=== PATIENT | female | born 1935 | race Caucasian/White ===

== ENCOUNTER → 2016-03-05 | Outpatient (CLI) | payer BC ==
[2016-03-05 14:48] LABS: EKG EKG PERFORMED
[2016-03-05 15:13] LABS: Basophils # (A) 0.1 k/uL (0-0.2); Basophils % (A) 1 %; CHCM 32.8; Eosinophils # (A) 0.1 k/uL (0-0.7); Eosinophils % (A) 1 %; HCT 35.8 % (34.0-46.0); HDW 2.69; HGB 11.4 gm/dL (11.4-16.0); Luc # (Auto) 0.13; Luc % (Auto) 2; Lymphocytes # (A) 2.8 k/uL (1.0-4.8); Lymphocytes % (A) 33 %; MCH 30.3 pg (25.0-35.0); MCV 94.9 fL (80.0-100.0); Mean Platelet Volume 8.2; Monocytes # (A) 0.4 k/uL (0-1.0); Monocytes % (A) 5 %; Neutrophils % (A) 58 %; RBC 3.77 m/uL (3.80-5.40); RDW 12.9 % (11.5-15.5); WBC 8.6 k/uL (3.8-10.6); WBC (Perox) 9.18
--- NOTE | 2016-03-05 15:27 | XR ---
EXAMINATION TYPE: XR chest 2V DATE OF EXAM: 03/05/2016 2:28 PM COMPARISON: NONE INDICATION: Presurgery: Evaluation for calcification TECHNIQUE: Frontal and lateral views of the chest are obtained. FINDINGS: The heart size is normal. The pulmonary vasculature is normal. The lungs are clear. IMPRESSION: 1. No acute pulmonary process.
[2016-03-05 15:29] LABS: ALT 32 U/L (9-52); AST 19 U/L (14-36); Alkaline Phosphatase 77 U/L (38-126); Anion Gap 10 mmol/L; Blood Urea Nitrogen 34 mg/dL (7-17); Carbon Dioxide 29 mmol/L (22-30); Chloride 102 mmol/L (98-107); Glucose 69 mg/dL (74-99); Non-African American GFR(MDRD) 53 (>60 ml/min/1.73 sqM); Potassium 5.1 mmol/L (3.5-5.1); Sodium 141 mmol/L (137-145); Total Bilirubin 0.3 mg/dL (0.2-1.3)
[2016-03-05 16:27] LABS: Amorphous Sediment,Urine Occasional /hpf; Appearance,Urine Cloudy (Clear); Bacteria,Urine Few /hpf; Bilirubin,Urine Negative (Negative); Glucose,Urine (UA) Negative (Negative); Ketones,Urine Negative (Negative); Leukocyte Esterase,Urine Large (Negative); Nitrite,Urine Negative (Negative); PH, Urine 5.5 (5.0-8.0); Particle Count 14958; Protein,Urine Trace (Negative); RBC,Urine 12 /hpf (0-5); Specific Gravity,Urine 1.019 (1.001-1.035); Squamous Epithelial Cell,Urine 4 /hpf (0-4); UA Billing (MACRO vs. MICRO) MICRO; Urobilinogen,Urine <2.0 mg/dL (<2.0); WBC,Urine >182 /hpf (0-5)
== END | disposition home or self-care (01) ==
LOC: RADXRMAIN 13:53
PROVIDERS: ATTEND Urology
DX: Z01.810 Encounter for preprocedural cardiovascular examination (principal); Z01.812 Encounter for preprocedural laboratory examination; I10 Essential (primary) hypertension; R06.02 Shortness of breath; N20.0 Calculus of kidney; R35.0 Frequency of micturition; Z79.899 Other long term (current) drug therapy
CPT/HCPCS: 36415; 71020; 80053; 81001; 85025; 86850; 86900; 86901; 87077; 87086; 87186; 93005

== ENCOUNTER → 2016-03-14 | Day surgery (SDC) | payer BC ==
[2016-03-06 08:42] VITALS: BMI 16.8
[~2016-03-14] MED LIST: AMPICILLIN 1,000 MG in SODIUM CHLORIDE 0.9% 50 ML IVPB ONE; DEXAMETHASONE SOD PHOSPHATE 10 MG/ML 1 ML VIAL IV ONE; GENTAMICIN 60 MG in SODIUM CHLORIDE 0.9% 100 ML IVPB ONE; HYDROmorphone 1 MG/ML 1 ML SYRINGE IVP PRN; LACTATED RINGERS 1,000 ML IV SCH; ONDANSETRON 4 MG/2 ML VIAL IVP ONE
--- NOTE | 2016-03-14 08:59 | XR ---
EXAMINATION TYPE: XR KUB DATE OF EXAM: 03/14/2016 8:50 AM HISTORY: Pain Comparison: None.Single KUB is submitted for interpretation. Findings: Right renal calculi: None Visualized. Right ureteral calculi: Large right ureteral calculus measuring 2.3 cm in greatest dimension is essen tially unchanged in location when positional factors are taken into account. Left renal calculi: None Visualized. Left ureteral calculi: None Visualized. Pelvic calcifications: Previously noted 7 mm calculus within the pelvic basin is not clearly visuali zed although there is a large amount of debris noted in this region. Bowel gas pattern is unremarkable. No free air. No mass effects. IMPRESSION: 1. Large calculus overlying the right ureter at the L5-S1 level is unchanged in position. 2. 7 mm calculus within the pelvic basin is not clearly visualized at this time.
[2016-03-14 09:40] VITALS: BP 152/70; PULSE 55; RESP 18; TEMP 98.1
--- NOTE | 2016-03-14 10:22 | P.PN ---
Subjective The patient was brought to the hospital for a probable percutaneous nephrostolithotomy today. Upon re-reviewing the computed tomography scan with radiology it was determined that the kidney lies too low in the pelvis to safely perform percutaneous access therefore the procedure was canceled. I discussed with the patient and the family the alternative options including ureteroscopy which I don't recommend, open surgery or laparoscopic approach. The patient is interested in laparoscopic approach therefore I'll discuss with a robotic/laparoscopic surgeon at [place] the case to see whether this is something he would consider. If so I would refer there if not she'll be set up for an open pyelolithotomy. Objective - Vital Signs Vital signs: Vital Signs Temp 98.1 F 03/14/16 09:35 Pulse 55 L 03/14/16 09:35 Resp 18 03/14/16 09:35 BP 152/70 03/14/16 09:35 Pulse Ox 95 03/14/16 09:35
== END ==
LOC: OR 07:00 → UNDOADMIN 08:56 → 2ORMAIN 08:56 → EDSTATUS 10:00 → UNDODISIN 10:52
PROVIDERS: ATTEND Urology
DX: N20.1 Calculus of ureter (principal); Z53.8 Procedure and treatment not carried out for other reasons
CPT/HCPCS: 86900; 86901; 86850; 74000; 50081; J1100; J2405